=== PATIENT | male | born 1930 | race Caucasian/White ===

== ENCOUNTER 2016-07-23 09:14 | Emergency (ER) | payer OTHER, MEDICARE ==
[~2016-07-23 09:14] MED LIST: BLOOD PRESSURE PILL; CALCIUM 600 W/V1 TAB; CELEBREX200 MG; CYCLOBENZAPRINE10 MG PO; DIVALPROEX SOD500 MG; HYDROCHLOROTHIA25 MG; HYDROCHLOROTHIA25 MG PO; LEVOTHYROXINE125 MCG PO; LEVOTHYROXINE200 MCG; LO-DOSE ASPIRIN81 MG; MULTIVITAMIN1 TAB; NORCO 5/3251 TA1 PO; POTASSIUM; PROSCAR5 MG; RANITIDINE HCL150 MG; RANITIDINE HCL150 MG PO; SAW PALMETTO450 MG; SYNTHROID25 MCG PO; VITAMIN E400 UNI1; ZINC50 M
[2016-07-23] MEDS ORDERED: HYDROCHLOROTHIA25 M1 PO (09:19)
[2016-07-23] MEDS ORDERED: SYNTHROID0.2 MG/TAB PO (09:20)
[2016-07-23] MEDS ORDERED: OMEPRAZOLE20 M3 PO (09:20)
[2016-07-23] MEDS ORDERED: COZAAR100 M1 PO (09:20)
[2016-07-23] MEDS ORDERED: TYLENOL325 M2 PO (09:32)
[2016-07-23] MEDS ORDERED: COLACE100 M1 PO (09:32)
[2016-07-23] MEDS ORDERED: MULTIVITAMINS1 EAC5 PO (09:33)
[2016-07-23] MEDS ORDERED: ZANTAC150 M1 PO (09:33)
[2016-07-23 10:00] LABS: BASO % 0.5 % (0-2); EOS % 1.1 % (0-7); EOSINOPHIL ABSOLUTE COUNT 0.1 tho/cmm (0.0-0.7); HCT-HEMATOCRIT 41.4 % (36.0-53.5); HGB-HEMOGLOBIN 14.5 gm/dl (13.5-17.0); IMMATURE GRANULOCYTES ABSOLUTE 0.01 tho/cmm (0-0.03); IMMATURE GRANULOCYTES PERCENT 0.2 % (0-0.3); LYMPH % 25.5 % (20-45); LYMPH ABSOLUTE COUNT 1.6 tho/cmm (0.8-4.5); MCH (MEAN CORPUSCULAR HGB) 31.9 pg (28.0-32.0); MCV (MEAN CELL VOLUME) 91.2 fl (82.0-96.0); MONO % 7.7 % (0-12); MONOCYTE ABSOLUTE COUNT 0.5 tho/cmm (0.0-1.2); PLATELET COUNT 220 tho/cmm (150-450); RED BLOOD COUNT 4.54 mil/cmm (4.40-5.70); RED CELL DISTRIBUTION WIDTH 13.3 % (12.4-16.4); WHITE BLOOD COUNT 6.2 tho/cmm (4.0-10.0)
[2016-07-23 10:09] LABS: URINE BILIRUBIN NEGATIVE (NEG); URINE BLOOD NEGATIVE (NEG); URINE GLUCOSE (UA) NEGATIVE (NEG); URINE KETONE NEGATIVE (NEG); URINE LEUKOCYTE ESTERASE NEGATIVE (NEG); URINE NITRITE NEGATIVE (NEG); URINE PROTEIN NEGATIVE (NEG)
[2016-07-23 10:10] LABS: URINE APPEARANCE CLEAR; URINE COLOR YELLOW
[2016-07-23 10:11] LABS: ALB/GLOB RATIO 1.1 (0.8-2.0); ALBUMIN 3.8 g/dl (3.5-5.0); ALKALINE PHOSPHATASE 70 U/L (33-138); ALT/SGPT 33 U/L (12-78); ANION GAP 11 mmol/L (0-20); AST/SGOT 36 U/L (10-40); BILIRUBIN,TOTAL 0.7 mg/dl (0.0-1.5); BLOOD UREA NITROGEN 12 mg/dl (6-24); CALCIUM 8.9 mg/dl (8.5-10.5); CARBON DIOXIDE-VENOUS 27 mmol/L (22-32); CHLORIDE 98 mmol/l (96-110); CREATININE 0.87 mg/dl (0.60-1.30); GLUCOSE 103 mg/dL (70-110); MAGNESIUM 2.1 mg/dl (1.8-2.6); PHOSPHOROUS 3.5 mg/dl (2.5-4.9); POTASSIUM 4.1 mmol/L (3.7-5.1); SODIUM 132 mmol/L (135-145); eGFR VALUE FOR BLACK >90 mL/Min
== END 2016-07-23 10:55 ==
LOC: EDMED 09:14
PROVIDERS: Emergency Medicine
DX: R79.89 Other specified abnormal findings of blood chemistry (principal); K21.9 Gastro-esophageal reflux disease without esophagitis; Z85.831 Personal history of malignant neoplasm of soft tissue; E03.9 Hypothyroidism, unspecified; Z90.89 Acquired absence of other organs; Z79.899 Other long term (current) drug therapy
CPT/HCPCS: J7030